=== PATIENT | female | born 1960 | race African-American/Black ===

== ENCOUNTER 2022-04-27 13:17 | Emergency (ER) | payer MEDICAID ==
[~2022-04-27] VITALS: Ht 172.7 cm; Wt 90.0 kg
[2022-04-27 13:28] VITALS: BP 136/101
== END 2022-04-27 16:45 | disposition home or self-care (01) ==
LOC: ER 13:17
DX: M54.59 Other low back pain (principal); M54.2 Cervicalgia; M25.559 Pain in unspecified hip; G89.11 Acute pain due to trauma; M54.12 Radiculopathy, cervical region; V49.49XA Driver injured in collision with other motor vehicles in traffic accident, initial encounter; Y93.89 Activity, other specified; Y92.488 Other paved roadways as the place of occurrence of the external cause
CPT/HCPCS: 72040; 72100; 99284